=== PATIENT | female | born 1975 | race Caucasian/White ===

== ENCOUNTER 2019-09-17 19:25 | Inpatient (IN) | payer OTHER ==
[~2019-09-17] VITALS: Ht 165.1 cm; Wt 59.0 kg
[2019-09-17 20:08] LABS: ABG HCO3 23.1 mmol/L; ABG PH 7.551 (7.350-7.450); ABG PO2 70.5 mmHg (75.0-100.0); ABG SITE RIGHT BRACHIAL; ABG TOTAL HEMOGLOBIN 13.5 G/dL (12.0-16.0); COHb 0.9 % (0.5-1.5); MetHb 0.2 % (0.0-1.5); O2Hb 94.5 % (94.0-97.0); VENT MODE ROOM AIR
[2019-09-17 20:38] LABS: BASOPHILS % (AUTO) 0.4 % (0.0-2.0); EOSINOPHILS % (AUTO) 0.2 % (0.0-7.0); HEMATOCRIT 41.4 % (31.2-41.9); HEMOGLOBIN 14.2 g/dL (10.9-14.3); LYMPHOCYTES # (AUTO) 0.7 K/uL (20.0-40.0); LYMPHOCYTES % (AUTO) 31.7 % (20.5-51.5); MEAN CORPUSCULAR HEMOGLOBIN 34.2 uug (24.7-32.8); MEAN CORPUSCULAR HGB CONC 34 g/dL (32.3-35.6); MEAN CORPUSCULAR VOLUME 99.3 fL (75.5-95.3); MONOCYTES # (AUTO) 0.2 K/uL (2.0-10.0); MONOCYTES % (AUTO) 11.4 % (0.0-11.0); NEUTROPHILS # (AUTO) 1.2 K/uL (1.8-8.9); NEUTROPHILS % (AUTO) 56.3 % (38.5-71.5); PLATELET COUNT (AUTO) 216 K/uL (179-408); RED BLOOD CELL COUNT(AUTO) 4.16 MIL/uL (3.63-4.92); WHITE BLOOD COUNT (AUTO) 2.1 K/uL (3.8-11.8)
[2019-09-17 21:02] LABS: CREATININE 0.9 mg/dL (0.6-1.3); POTASSIUM 4.1 mmol/L (3.5-5.1)
[2019-09-17] MEDS ORDERED: AZITHROMYCIN IV 500 MG in IV DEXTROSE 5% 250 ML IV ONE ×2 (21:15→21:45)
[2019-09-17] MEDS ORDERED: CEFTRIAXONE 1 G in IV DEXTROSE 5% 50 ML IV ONE (21:15)
[2019-09-17] MEDS ORDERED: IV NORMAL SALINE 500 ML IV ONE (21:15)
[2019-09-17 21:16] LABS: BILIRUBIN,TOTAL 0.3 mg/dL (0.2-1.0)
--- NOTE | 2019-09-17 21:27 | NUR ---
Spoke to August of [facility], provided clinical info.
[2019-09-17] MEDS ORDERED: ONDANSETRON 4 MG/2 ML VIAL IV ONE (21:45)
[2019-09-17] MEDS ORDERED: ACETAMINOPHEN ES 500 MG TABLET PO ONE (21:45)
[2019-09-17] MEDS ORDERED: MORPHINE SULFATE 2 MG/1 ML DISP.SYRIN IV ONE (21:45)
[2019-09-17] MEDS ORDERED: CEFTRIAXONE 1 G VIAL ONE (22:03)
[2019-09-17] MEDS ORDERED: AZITHROMYCIN 500MG/ D5W 250ML IVPB **ER PYXIS ONLY IV ONE (22:04)
--- NOTE | 2019-09-17 22:22 | NUR ---
PT out of ER for CT.
--- NOTE | 2019-09-17 22:28 | NUR ---
Pt provided urine sample, sent to lab.
--- NOTE | 2019-09-17 22:30 | NUR ---
Dr. Rivera speaking with Dr. Levy of [place], pt not accepted by Dr. Levy and given authorization to be admitted to [facility].
--- NOTE | 2019-09-17 22:33 | NUR ---
Patient back to ER from CT.
--- NOTE | 2019-09-17 22:37 | NUR ---
Called to [facility] to page Cesario Reddy NP.
--- NOTE | 2019-09-17 22:39 | NUR ---
Dr. Rivera on panel call with Cesario Reddy NP.
--- NOTE | 2019-09-17 22:42 | NUR ---
Received call back from August of [facility] Dr Rivera speaking with [facility] and decided that patient will now be accepted for transfere.
--- NOTE | 2019-09-17 22:45 | NUR ---
Called [facility] to repage Jose Reddy NP.
[2019-09-17 22:50] LABS: *BILIRUBIN,URIN NEGATIVE (NEGATIVE); *CLARITY,URINE CLEAR (CLEAR); *COLOR,URINE YELLOW (YELLOW); *KETONES,URINE NEGATIVE (NEGATIVE); *UROBILINOGEN,URINE 0.2 E.U./dl (NORMAL); LEUKOCYTE ESTERASE ,URINE NEGATIVE (NEGATIVE); NITRITE, URINE NEGATIVE (NEGATIVE); UGLUCOSE NEGATIVE (NEGATIVE)
[2019-09-17 22:52] LABS: *BLOOD, URINE TRACE (NEGATIVE)
[2019-09-17 22:57] LABS: BACTERIA,URINE FEW /HPF (NONE SEEN); SQUAMOUS EPITHELIAL CELL,UR FEW /HPF (NONE SEEN); WBC,URINE 0-3 /HPF (0-3)
[2019-09-17] MEDS ORDERED: ONDANSETRON 4 MG/2 ML VIAL IV PRN (23:00)
[2019-09-17] MEDS ORDERED: IV NS 1000 ML 1,000 ML IV PRN (23:15)
--- NOTE | 2019-09-18 02:00 | NUR ---
Did not receive call back from [facility] regarding patient transfer, per Brittaney of [facility], if no call back by 0200, patient can be admitted to [facility].
--- NOTE | 2019-09-18 02:34 | NUR ---
Report given to [facility].
[2019-09-18] MEDS ORDERED: ALBUTEROL SULFATE 2.5 MG/ 0.5 ML NEBU NEB PRN (03:00)
[2019-09-18] MEDS: ACETAMINOPHEN 325 MG TABLET PO PRN ×2 (03:09→12:50)
--- NOTE | 2019-09-18 03:30 | NUR ---
Received patient awake and alert. Patient shows no signs or symptoms of distress at this time. Vital signs stable. Patient complains of having minimal shortness of breath and headache. 2L NC applied and pt reports that she feels better. Tylenol to be given for headache. No fever noted at this time. Call light within reach. Bed set to lowest position. Side rails x2 are up. Will continue to monitor patient.
[2019-09-18 04:25] VITALS: BP 104/68
[2019-09-18] MEDS ORDERED: ALBUTEROL SULFATE 8 GM HFA.AER.AD IH PRN (06:30)
[2019-09-18 07:02] LABS: BILIRUBIN,TOTAL 0.2 mg/dL (0.2-1.0); POTASSIUM 4.3 mmol/L (3.5-5.1); TOTAL PROTEIN, SERUM 6.3 g/dL (6.4-8.2)
--- NOTE | 2019-09-18 07:02 | NUR ---
Patient shows no signs or symptoms of distress at this time. NSR on tele monitor. Afebrile since arrival to unit. Complains of having shortness of breath. MDI albuterol given as per MD order. Pt seen by Dr. Reddy. Will endorse patient to day shift nurse in stable condition.
[2019-09-18 07:22] LABS: BASOPHILS % (AUTO) 0.6 % (0.0-2.0); LYMPHOCYTES % (AUTO) 42.1 % (20.5-51.5); MEAN CORPUSCULAR HEMOGLOBIN 34.4 uug (24.7-32.8); MEAN CORPUSCULAR HGB CONC 34 g/dL (32.3-35.6); MEAN CORPUSCULAR VOLUME 99.8 fL (75.5-95.3); MONOCYTES # (AUTO) 0.3 K/uL (2.0-10.0); MONOCYTES % (AUTO) 12.9 % (0.0-11.0); NEUTROPHILS % (AUTO) 44.4 % (38.5-71.5); PLATELET COUNT (AUTO) 201 K/uL (179-408); RED BLOOD CELL COUNT(AUTO) 3.51 MIL/uL (3.63-4.92); WHITE BLOOD COUNT (AUTO) 2.3 K/uL (3.8-11.8)
[2019-09-18] MEDS: ENOXAPARIN SODIUM 40 MG/0.4 ML DISP.SYRIN SQ SCH (09:15)
[2019-09-18] MEDS: HYDROXYCHLOROQUINE SULFATE 200 MG TABLET PO SCH ×2 (09:47→20:42)
[2019-09-18] MEDS: DOXYCYCLINE HYCLATE 100 MG TABLET PO SCH ×2 (09:47→16:57)
[2019-09-18 09:48] LABS: LYMPHOCYTES % (MANUAL) 42 % (20-40); MONOCYTES % (MANUAL) 13 % (2-10); NEUTROPHILS % (MANUAL) 45 % (42-75)
[2019-09-18 11:30] VITALS: BP 97/56
[2019-09-18] MEDS: LORAZEPAM 1 MG TABLET PO PRN (14:00)
[2019-09-18 16:00] VITALS: BP 96/66
[2019-09-18 20:00] VITALS: BP 100/64
--- NOTE | 2019-09-18 20:00 | NUR ---
Received patient in bed awake and alert, A/Ox4. No signs of acute distress. Complains of heartburn and upset stomach, called on-call Dr. Pantoja and ordered Mylanta 30ml Q6H PRN and Protonix 40mg daily. No SOB. IVF running on the left AC, no s/s of infection or infiltration noted. Patient on Plaquenil. Safety measures initiated. bed is low and locked, call light within reach. Will continue to monitor.
[2019-09-18] MEDS: CEFTRIAXONE 1 G in IV DEXTROSE 5% 50 ML IV SCH (20:41)
[2019-09-18] MEDS: MAG HYDROX/AL HYDROX/SIMETH 30 ML LIQUID UDC PO PRN (20:42)
[2019-09-18] MEDS: TEMAZEPAM 15 MG CAPSULE PO PRN (21:30)
--- NOTE | 2019-09-18 22:51 | NUR ---
Benita from lab called, COVID result is positive. Patient was also tested positive before coming to hospital. Will endorse to morning shift.
--- NOTE | 2019-09-18 22:52 | NUR ---
Patient saturating at 9% on 2L NC, increased to 3L due to patient stating feeling SOB and also gave sleeping medication and she said it's helping. Addendum: 09/18/19 at 2253 by LILLIAM RODAS RN Correction 92% on 2L NC
[2019-09-19] VITALS (9 sets, daily range): BP systolic 91–106; BP diastolic 62–83
[2019-09-19] MEDS: ACETAMINOPHEN 325 MG TABLET PO PRN ×3 (00:39→17:15)
--- NOTE | 2019-09-19 00:43 | NUR ---
Patient noted with temp 102.4, PRN tylenol and cooling measures applied. Patient is saturating at 93% on 3L NC. Patient stated breathing is ok, just when she is off O2 and goes to restroom she feels SOB.
--- NOTE | 2019-09-19 04:00 | NUR ---
Temp is now 98.4
[2019-09-19 07:19] LABS: BASOPHILS % (AUTO) 0.5 % (0.0-2.0); EOSINOPHILS % (AUTO) 0.1 % (0.0-7.0); HEMATOCRIT 37.1 % (31.2-41.9); HEMOGLOBIN 12.6 g/dL (10.9-14.3); LYMPHOCYTES % (AUTO) 35.9 % (20.5-51.5); MEAN CORPUSCULAR HGB CONC 34 g/dL (32.3-35.6); MEAN CORPUSCULAR VOLUME 99.8 fL (75.5-95.3); MONOCYTES # (AUTO) 0.3 K/uL (2.0-10.0); MONOCYTES % (AUTO) 12.4 % (0.0-11.0); NEUTROPHILS # (AUTO) 1.4 K/uL (1.8-8.9); NEUTROPHILS % (AUTO) 51.1 % (38.5-71.5); PLATELET COUNT (AUTO) 232 K/uL (179-408); RED BLOOD CELL COUNT(AUTO) 3.72 MIL/uL (3.63-4.92); WHITE BLOOD COUNT (AUTO) 2.7 K/uL (3.8-11.8)
[2019-09-19 07:33] LABS: CREATININE 0.9 mg/dL (0.6-1.3); MAGNESIUM 1.9 mg/dL (1.8-2.4); PHOSPHOROUS 3.8 mg/dL (2.5-4.9); POTASSIUM 4.1 mmol/L (3.5-5.1)
--- NOTE | 2019-09-19 07:40 | NUR ---
RESTING IN BED AFEBRILE REMAINS ON O2 AT 2L/M BY NASAL CANULLA STATED HAS POOR APPETITE BUT ORAL FLUID INTAKE HAS BEEN OKAY CALL LIGHTS AND PERSONAL BELONGINGS HAS BEEN WITHIN EASY REACH MADE COMFORTABLE WILL CONTINUE TO OBSERVE.
[2019-09-19] MEDS: PANTOPRAZOLE SODIUM 40 MG TABLET.DR PO SCH (08:32)
[2019-09-19] MEDS: HYDROXYCHLOROQUINE SULFATE 200 MG TABLET PO SCH ×2 (08:32→20:36)
[2019-09-19] MEDS: DOXYCYCLINE HYCLATE 100 MG TABLET PO SCH ×2 (08:32→16:56)
[2019-09-19] MEDS: ENOXAPARIN SODIUM 40 MG/0.4 ML DISP.SYRIN SQ SCH (08:37)
[2019-09-19 08:47] LABS: FERRITIN 438 ng/mL (8-252); LACTATE DEHYDROGENASE 196 U/L (81-234)
--- NOTE | 2019-09-19 09:05 | NUR ---
PATIENT IS IN BED AWAKE ALERT AND ORIENTED STATED IS HAVING A HEADACHE MEDICATED WITH TYLENOL ON O2 AT 3L/M BY NASAL CANULA WITH NO SOB AT THIS TIME POOR APPETITE BUT ORAL FLUID INTAKE HAS BEEN ADEQUATE MADE COMFORTABLE REMAIN ON ISOLATION ORDERED WILL CONTINUE TO OBSERVE.
[2019-09-19 09:38] LABS: LYMPHOCYTES % (MANUAL) 37 % (20-40); MONOCYTES % (MANUAL) 10 % (2-10); NEUTROPHILS % (MANUAL) 53 % (42-75)
[2019-09-19 10:15] LABS: ABG BASE EXCESS -1.2 mmol/L; ABG HCO3 21.1 mmol/L; ABG PCO2 29.6 mmHg (35.0-45.0); ABG PO2 77.8 mmHg (75.0-100.0); ABG SITE RIGHT RADIAL; ABG TOTAL HEMOGLOBIN 16.5 G/dL (12.0-16.0); COHb 0.7 % (0.5-1.5); MetHb 0.2 % (0.0-1.5); O2Hb 95.1 % (94.0-97.0)
[2019-09-19] MEDS: LORAZEPAM 1 MG TABLET PO PRN ×2 (11:16→21:24)
--- NOTE | 2019-09-19 11:16 | NUR ---
PATIENT ASSISTED TO THE BATHROOM AND SHE HAS SOBE AND ANXIOUS ASSISTED BACK TO BED AND MEDICATED WITH ATIVAN ORDERED WILL CONTINUE TO OBSERVE.
[2019-09-19 11:39] LABS: BILIRUBIN,DIRECT 0.1 mg/dL (0.0-0.2); BILIRUBIN,TOTAL 0.2 mg/dL (0.2-1.0); TOTAL PROTEIN, SERUM 6.6 g/dL (6.4-8.2)
--- NOTE | 2019-09-19 12:30 | NUR ---
PATIENT WAS GIVEN THE RENDERZIVER PAMPHLET INSTRUCTIONS PROVIDED BY THE PHARMACY PATIENT READ IT AND STATED THAT SHE WANTS TO TAKE THE MEDICATION ORDERED.
--- NOTE | 2019-09-19 12:46 | NUR ---
REMDESIVER STARTED ORDERED AFTER HER VITALS WAS CHECKED AND DOCUMENTED AND PATIENT INSTRUCTED TO LET THE NURSE KNOW OF ANY UNUSUAL FEELING SOB ETC AND SHE EXPRESSED UNDERSTANDING.
[2019-09-19] MEDS ORDERED: INVESTIGATIONAL IV MED 1 EA in IV NORMAL SALINE 210 ML IV ONE (13:00)
--- NOTE | 2019-09-19 13:50 | NUR ---
REMDESIVIR INFUSED ORDERED PATIENT DENIES ANY ADVERSE EFFECTS NO SOB SHE IS AFEBRILE NO RASHERS SHIVERING OR ANY UNUSUAL FEELINGS PATIENT TOLERATED IT WELL LINE FLUSHED WITH 50 ML OF NORMAL SALINE MADE COMFORTABLE AND WILL CONTINUE TO OBSERVE.
--- NOTE | 2019-09-19 17:00 | NUR ---
STATED HAVING GENERALISED BODY ACHES MEDICATED WITH TYLENOL ORDERED MADE COMFORTABLE O2 IN PROGRESS WITH NO SOB AT THIS TIME REMAIN ON ISOLATION PRECAUTION MADE COMFORTABLE WILL CONTINUE TO OBSERVE.
--- NOTE | 2019-09-19 19:45 | NUR ---
Received patient awake and alert. Patient shows no signs or symptoms of distress at this time. Vital signs stable. NSR on tele monitor. Denies having any shortness of breath and is afebrile at this time. Bed set too lowest position. Call light within reach. Will continue to monitor patient.
[2019-09-19] MEDS: CEFTRIAXONE 1 G in IV DEXTROSE 5% 50 ML IV SCH (20:36)
[2019-09-20] VITALS: BP 108/85
[2019-09-20] MEDS: MAG HYDROX/AL HYDROX/SIMETH 30 ML LIQUID UDC PO PRN (01:19)
[2019-09-20] MEDS: TEMAZEPAM 15 MG CAPSULE PO PRN ×2 (02:18→22:00)
[2019-09-20] MEDS: ACETAMINOPHEN 325 MG TABLET PO PRN ×4 (02:18→22:06)
[2019-09-20 04:00] VITALS: BP 90/58
[2019-09-20 06:30] LABS: BASOPHILS % (AUTO) 0.4 % (0.0-2.0); EOSINOPHILS % (AUTO) 0.2 % (0.0-7.0); HEMATOCRIT 36.8 % (31.2-41.9); HEMOGLOBIN 12.5 g/dL (10.9-14.3); LYMPHOCYTES # (AUTO) 0.9 K/uL (20.0-40.0); LYMPHOCYTES % (AUTO) 34.1 % (20.5-51.5); MEAN CORPUSCULAR HEMOGLOBIN 33.6 uug (24.7-32.8); MEAN CORPUSCULAR HGB CONC 34 g/dL (32.3-35.6); MEAN CORPUSCULAR VOLUME 98.9 fL (75.5-95.3); MONOCYTES # (AUTO) 0.5 K/uL (2.0-10.0); MONOCYTES % (AUTO) 18.9 % (0.0-11.0); NEUTROPHILS # (AUTO) 1.3 K/uL (1.8-8.9); NEUTROPHILS % (AUTO) 46.4 % (38.5-71.5); RED BLOOD CELL COUNT(AUTO) 3.72 MIL/uL (3.63-4.92); WHITE BLOOD COUNT (AUTO) 2.8 K/uL (3.8-11.8)
--- NOTE | 2019-09-20 06:33 | NUR ---
Patient shows no signs or symptoms of distress at this time. Vital signs stable. Patient was afebrile throughout the shift and denied having any shortness of breath. NSR on tele monitor. Will endorse patient to day shift nurse in stable condition.
[2019-09-20 06:49] LABS: ALANINE AMINOTRANSFERASE 30 U/L (14-59); ALKALINE PHOSPHATASE 86 U/L (50-136); ASPARTATE AMINOTRANSFERASE 52 U/L (15-37); BILIRUBIN,DIRECT < 0.1 mg/dL (0.0-0.2); BILIRUBIN,TOTAL 0.2 mg/dL (0.2-1.0); CARBON DIOXIDE 26 mmol/L (21-32); CHLORIDE 100 mmol/L (98-107); CREATININE 0.9 mg/dL (0.6-1.3); FERRITIN 433 ng/mL (8-252); GLUCOSE 91 mg/dL (74-106); LACTATE DEHYDROGENASE 231 U/L (81-234); MAGNESIUM 2.2 mg/dL (1.8-2.4); POTASSIUM 4.4 mmol/L (3.5-5.1); UREA NITROGEN, BLOOD 7 mg/dL (7-18)
[2019-09-20 07:29] LABS: PLATELET COUNT (AUTO) 304 K/uL (179-408)
[2019-09-20 08:40] LABS: LYMPHOCYTES % (MANUAL) 38 % (20-40); MONOCYTES % (MANUAL) 16 % (2-10); NEUTROPHILS % (MANUAL) 46 % (42-75)
[2019-09-20 08:50] VITALS: BP 99/60
[2019-09-20] MEDS: PANTOPRAZOLE SODIUM 40 MG TABLET.DR PO SCH (08:57)
[2019-09-20] MEDS: DOXYCYCLINE HYCLATE 100 MG TABLET PO SCH ×2 (08:58→16:06)
[2019-09-20] MEDS: ENOXAPARIN SODIUM 40 MG/0.4 ML DISP.SYRIN SQ SCH (08:58)
[2019-09-20] MEDS: HYDROXYCHLOROQUINE SULFATE 200 MG TABLET PO SCH ×2 (08:58→21:21)
[2019-09-20] MEDS: INVESTIGATIONAL IV MED 1 EA in IV NORMAL SALINE 230 ML IV SCH (13:19)
[2019-09-20 13:20] VITALS: BP 95/61
[2019-09-20 17:21] VITALS: BP 102/69
--- NOTE | 2019-09-20 19:55 | NUR ---
critical lab value received. ID Lalitha WOOD and Saadia tirado, brian contacted. Lalitha WOOD ordered [facility] labs for the morning. Saadia Tirado, no new orders. charge aware.
[2019-09-20 20:00] VITALS: BP 102/63
--- NOTE | 2019-09-20 22:06 | NUR ---
patient c/o of pain. tylenol administered. tolerated well. temazepam given as well.
[2019-09-21] VITALS (9 sets, daily range): BP systolic 97–106; BP diastolic 63–73
--- NOTE | 2019-09-21 04:00 | NUR ---
patient sleeping comfortably. no s/s of acute distress noted. v/s stable. on NC 2L. safety precautions provided. NSR on tele monitor. IV intact and patent. all needs med. will continue to monitor.
--- NOTE | 2019-09-21 08:00 | NUR ---
Received patient in bed, awake, alert and verbally responsive. On Oxygen at 1L via nasal canula saturating 93%. No complain of Pain or discomfort at this time. Afebrile. remains on contact and droplet Isolation for Positive covid 19. proper PPE strictly Observed. Kept clean and comfortable. Will continue to monitor.
[2019-09-21 08:15] LABS: BASOPHILS % (AUTO) 0.5 % (0.0-2.0); HEMATOCRIT 37.8 % (31.2-41.9); HEMOGLOBIN 12.9 g/dL (10.9-14.3); LYMPHOCYTES % (AUTO) 41.5 % (20.5-51.5); MEAN CORPUSCULAR HEMOGLOBIN 33.9 uug (24.7-32.8); MEAN CORPUSCULAR HGB CONC 34 g/dL (32.3-35.6); MEAN CORPUSCULAR VOLUME 99.2 fL (75.5-95.3); MONOCYTES # (AUTO) 0.4 K/uL (2.0-10.0); RED BLOOD CELL COUNT(AUTO) 3.81 MIL/uL (3.63-4.92); WHITE BLOOD COUNT (AUTO) 2.5 K/uL (3.8-11.8)
[2019-09-21 08:22] LABS: PLATELET COUNT (AUTO) 389 K/uL (179-408)
[2019-09-21] MEDS: PANTOPRAZOLE SODIUM 40 MG TABLET.DR PO SCH (08:57)
[2019-09-21] MEDS: HYDROXYCHLOROQUINE SULFATE 200 MG TABLET PO SCH ×2 (08:58→20:29)
[2019-09-21 09:01] LABS: BILIRUBIN,DIRECT 0.1 mg/dL (0.0-0.2); BILIRUBIN,TOTAL 0.2 mg/dL (0.2-1.0); MAGNESIUM 2.2 mg/dL (1.8-2.4); PHOSPHOROUS 3.4 mg/dL (2.5-4.9); POTASSIUM 4.2 mmol/L (3.5-5.1); TOTAL PROTEIN, SERUM 7.2 g/dL (6.4-8.2)
[2019-09-21] MEDS: ENOXAPARIN SODIUM 40 MG/0.4 ML DISP.SYRIN SQ SCH (09:36)
[2019-09-21 10:24] LABS: BAND % (MANUAL) 1 % (0-10); EOSINOPHILS % (MANUAL) 2 % (0-8); LYMPHOCYTES % (MANUAL) 47 % (20-40); MONOCYTES % (MANUAL) 15 % (2-10); MYELOCYTES % 1 % (0-0); NEUTROPHILS % (MANUAL) 33 % (42-75)
--- NOTE | 2019-09-21 11:00 | NUR ---
placed patient on Room Air, saturating 92%. will continue to monitor.
[2019-09-21] MEDS: ACETAMINOPHEN 325 MG TABLET PO PRN ×2 (11:18→17:46)
[2019-09-21] MEDS ORDERED: HYDROCODONE BIT/HOMATROPINE 5 ML UDC PO PRN (12:00)
--- NOTE | 2019-09-21 12:50 | NUR ---
Vital signs 15 minutes prior Remdesevir IV : 106/70 P 78 R 20 T 98.5 Sat. 92% on Room Air.
--- NOTE | 2019-09-21 13:05 | NUR ---
Vital Signs while Remdesevir IV started: BP 102/68 P 76 R 18 T 98.5 Sat 92% on Room Air.
--- NOTE | 2019-09-21 13:20 | NUR ---
Vital signs 15 minutes after started the Remdesevir IV : BP 97/70 P 82 R 18 Sat 92% on Room Air, called Mikki Pharmacist and slower the rate form 250cc/hr to 125cc/hr. Will continue to monitor.
[2019-09-21] MEDS: INVESTIGATIONAL IV MED 1 EA in IV NORMAL SALINE 230 ML IV SCH (13:30)
--- NOTE | 2019-09-21 13:35 | NUR ---
Patient on IV Remdesevir at 125cc/hr, Vital signs 106/70 P 82 Saturating 92% on Room Air. No ASE noted. Will continue to monitor.
--- NOTE | 2019-09-21 18:00 | NUR ---
New Order of Covid 19 swab done, sent to labs.
--- NOTE | 2019-09-21 18:24 | NUR ---
Patient in bed, awake and alert, verbally responsive. Able to make needs known. On Room Air Saturating 92%. With episode of SOB and dry cough. Tylenol 650mg given for Headache. Remdesevir IV given, No ASE noted, tolerated well. Afebrile. Kept clean and comfortable. All needs attended and met. Will endorse to Oncoming Nurse.
--- NOTE | 2019-09-21 20:00 | NUR ---
Patient received into care, sitting up in bed, watching television. Patient is alert/oriented x4 and complaining of headache, but received Tylenol 650mg PO at 1745h. Patient didn't eat any of her dinner and when questioned patient advised this nurse that she has allergies to gluten and is lactose intolerant. This nurse advised patient she would make note of her allergies and update her meal preferences. All safety, fall, and isolation precautions are in place. Call light and personal items are within reach at all times. Will continue to monitor and assess.
[2019-09-21] MEDS: TEMAZEPAM 15 MG CAPSULE PO PRN (22:46)
[2019-09-22] VITALS (8 sets, daily range): BP systolic 94–143; BP diastolic 44–68
[2019-09-22] MEDS: MAG HYDROX/AL HYDROX/SIMETH 30 ML LIQUID UDC PO PRN (04:21)
[2019-09-22] MEDS: ACETAMINOPHEN 325 MG TABLET PO PRN (04:22)
--- NOTE | 2019-09-22 06:00 | NUR ---
Patient slept well throughout night with complaints of pain/discomfort addressed with prescribed analgesics and complaints of heartburn addressed with prescribed magnesium hydroxide/aluminum hydroxide, with no adverse side effects verbalized by patient or noted/observed by this nurse. VS are wnl and patient is tolerating room air with oxygen saturation in the mid 90's. All nursing needs were met promptly and patient is warm, dry, and comfortable. All fall and isolation precautions remain in effect. Call light and personal items remain within reach at all times.
--- NOTE | 2019-09-22 08:00 | NUR ---
Patient in bed, awake, alert and verbally responsive. patient was room air saturating 88%, placed back to Oxygen at 2L via nasal canula, saturating 92%.patient has episode of Dry cough. No complain of pain at this time. remains on contact and droplet isolation for positive covid 19. Proper PPE strictly Observed. kept clean and comfortable. Will continue to monitor.
[2019-09-22] MEDS: HYDROXYCHLOROQUINE SULFATE 200 MG TABLET PO SCH ×2 (08:07→21:56)
[2019-09-22] MEDS: PANTOPRAZOLE SODIUM 40 MG TABLET.DR PO SCH (08:08)
[2019-09-22 08:32] LABS: BILIRUBIN,DIRECT 0.1 mg/dL (0.0-0.2); BILIRUBIN,TOTAL 0.2 mg/dL (0.2-1.0); CREATININE 0.9 mg/dL (0.6-1.3); MAGNESIUM 2.8 mg/dL (1.8-2.4); POTASSIUM 4.2 mmol/L (3.5-5.1); TOTAL PROTEIN, SERUM 7.3 g/dL (6.4-8.2)
[2019-09-22 08:44] LABS: BASOPHILS % (AUTO) 0.3 % (0.0-2.0); EOSINOPHILS % (AUTO) 0.9 % (0.0-7.0); HEMATOCRIT 39.1 % (31.2-41.9); HEMOGLOBIN 13.3 g/dL (10.9-14.3); LYMPHOCYTES % (AUTO) 25.7 % (20.5-51.5); MEAN CORPUSCULAR HEMOGLOBIN 33.8 uug (24.7-32.8); MEAN CORPUSCULAR HGB CONC 34 g/dL (32.3-35.6); MEAN CORPUSCULAR VOLUME 99.6 fL (75.5-95.3); MONOCYTES # (AUTO) 0.7 K/uL (2.0-10.0); NEUTROPHILS % (AUTO) 54.1 % (38.5-71.5); PLATELET COUNT (AUTO) 477 K/uL (179-408); RED BLOOD CELL COUNT(AUTO) 3.93 MIL/uL (3.63-4.92); WHITE BLOOD COUNT (AUTO) 3.7 K/uL (3.8-11.8)
[2019-09-22] MEDS: ENOXAPARIN SODIUM 40 MG/0.4 ML DISP.SYRIN SQ SCH (10:00)
[2019-09-22 12:57] LABS: EOSINOPHILS % (MANUAL) 1 % (0-8); LYMPHOCYTES % (MANUAL) 22 % (20-40); MONOCYTES % (MANUAL) 23 % (2-10); NEUTROPHILS % (MANUAL) 54 % (42-75)
[2019-09-22] MEDS: INVESTIGATIONAL IV MED 1 EA in IV NORMAL SALINE 230 ML IV SCH (13:11)
--- NOTE | 2019-09-22 18:18 | NUR ---
Patient in bed, awake, alert and verbally responsive. No signs of distress noted. afebrile. On Oxygen at 2L via nasal canula, saturating 94%. No complain of Pain or discomfort. Remdesevir IV given, No ASE noted. tolerated well. kept clean and comfortable. Will endorse to Oncoming Nurse.
--- NOTE | 2019-09-22 20:00 | NUR ---
Patient received into care, sitting up in bed, watching television. Patient is alert/oriented x4 and has no complaints of pain or discomfort at this time. IV site on left forearm is patent and intact. All safety, fall, allergy, and isolation precautions are in place. Call light and personal items are within reach at all times. Will continue to monitor and assess.
--- NOTE | 2019-09-22 21:06 | NUR ---
Spoke with ISRAEL Field regarding order for convalescent plasma transfusion, per 09/21/2019 note from Delbert at 1340h and ISRAEL Schwab at 1641h. ISRAEL Field gave okay to place order for convalescent plasma transfusion.
--- NOTE | 2019-09-22 23:25 | NUR ---
This nurse called lab re: convalescent plasma order. As per vat house laborer Pavan, order placed by both MD Mandujano and ISRAEL Schwab. Lab will begin readying plasma for transfusion.
--- NOTE | 2019-09-22 23:48 | NUR ---
Signed consent received from patient for transfusion.
[2019-09-23] VITALS (10 sets, daily range): BP systolic 90–103; BP diastolic 59–71
--- NOTE | 2019-09-23 02:10 | NUR ---
Started transfusion of convalescent plasma. VS before transfusion: T 97.7 HR 74 BP 90/60 O2 94% Will continue to monitor and assess.
--- NOTE | 2019-09-23 02:25 | NUR ---
Convalescent Transfusion after 15 minutes: VS T 97.9 HR 74 BP 95/62 O2 96% Will continue to monitor and assess.
--- NOTE | 2019-09-23 02:55 | NUR ---
Convalescent plasma transfusion after 30 min: T 98.0 HR 73 BP 93/65 RR 19 O2 96% Will continue to monitor and assess.
--- NOTE | 2019-09-23 04:13 | NUR ---
Convalescent plasma infusion complete. Final VS: T 98.0 HR 67 BP 91/59 RR 19 O2 95%. Infusion tolerated well by patient with no adverse side effects verbalized by patient or noted/observed by this nurse. Will continue to monitor and assess.
[2019-09-23] MEDS: ACETAMINOPHEN 325 MG TABLET PO PRN (04:22)
--- NOTE | 2019-09-23 05:00 | NUR ---
Patient slept intermittently throughout night with complaints of headache addressed with prescribed Tylenol 650mg PO. Investigational convalescent plasma infused as ordered and tolerated well by patient with no adverse side effects verbalized by patient or noted/observed by this nurse. All prescribed medications provided as ordered and tolerated well by patient with no adverse side effects verbalized by patient or noted/observed by nurse. All nursing needs met promptly and patient is warm, dry, and comfortable. All safety, fall, allergy, and isolation precautions remain in effect. Call light and personal items remain in within reach.
[2019-09-23 06:56] LABS: BILIRUBIN,DIRECT 0.1 mg/dL (0.0-0.2); BILIRUBIN,TOTAL 0.3 mg/dL (0.2-1.0); TOTAL PROTEIN, SERUM 7.3 g/dL (6.4-8.2)
[2019-09-23] MEDS: PANTOPRAZOLE SODIUM 40 MG TABLET.DR PO SCH (08:44)
[2019-09-23] MEDS: ENOXAPARIN SODIUM 40 MG/0.4 ML DISP.SYRIN SQ SCH (08:44)
[2019-09-23 09:59] LABS: CREATININE 0.9 mg/dL (0.6-1.3); POTASSIUM 4.2 mmol/L (3.5-5.1)
--- NOTE | 2019-09-23 11:43 | NUR ---
Patient is AAO x 4, No acute distress noted. No complains of pain at this time. Afebrile. Vital signs stable for patient. Denies any pain. Patient noted with cough, denies any SOB. Due medications administered as ordered and scheduled and tolerated well. IV line on left FA intact and patent. NO S/Sx of infiltration noted. Patient very compliant with care. Independent with adls and ambulatory. Safety need in place, call light left at bed side and will continue with care and monitor.
[2019-09-23] MEDS: MAG HYDROX/AL HYDROX/SIMETH 30 ML LIQUID UDC PO PRN (12:27)
[2019-09-23] MEDS: INVESTIGATIONAL IV MED 1 EA in IV NORMAL SALINE 230 ML IV SCH (13:39)
--- NOTE | 2019-09-23 19:49 | NUR ---
Patient in bed awake, denies any discomfort. Patient noted still coughing. Afebrile. Vital signs stable. Patient noted with short of breath while going to the bathroom during shift and stated feeling dizzy going back to bed. Patient assisted back to bed and placed on O2 2LPM with O2 sating at 96%. Educated patient to put on NC whenever feeling SOB. Patient verbalized understanding. All other needs attended, vital signs stable at this time. All safety measures in place, endorsed to next shift and will continue with care.
--- NOTE | 2019-09-23 20:00 | NUR ---
Patient received into care sitting up in bed, watching television, resting comfortably. Patient is alert/oriented x4 and has no complaints of pain or discomfort at this time. All safety, fall, allergy, and isolation precautions are in place. Call light and personal items are within reach at all times. Will continue to monitor and assess.
--- NOTE | 2019-09-23 21:15 | NUR ---
This nurse attempted to ambulate patient from room 210 to hallway for trial walk with portable oxygen at 2L/min and continuous pulse-ox measurement. Patient was able to walk a few steps inside room but became SOB and began having a syncopal episode and pulse-ox measuring from 88-89%. This nurse safely helped patient back to bed and placed her in a high zuniga's position, and transferred NC oxygen from portable oxygen to wall oxygen. After 5 minutes, patient was no longer experiencing SOB and oxygen saturation was at 93%. No further attempts were made to ambulate patient, as ordered, based upon the first trial of walking with portable oxygen.
[2019-09-24 00:06] VITALS: BP 102/64
[2019-09-24 04:00] VITALS: BP 93/64
--- NOTE | 2019-09-24 06:00 | NUR ---
Patient slept intermittently throughout night with no complaints of pain or discomfort vergalized by patient. As ordered, this nurse attempted to ambulate patient with portable oxygen and pulse ox, however, patient became SOB and had a near syncopal episode after a few steps, with oxygen desaturation occurring at 88-89%. No further attempts were made to ambulate patient as ordered due to SOB, desaturation, and near syncopal episode. Patient expressed her concerns to this nurse about being discharged to her home because she lives in a 2nd floor apartment by herself and is concerned that she will experience these same signs/symptoms and not have any assistance should she "faint." This nurse assured patient that she would make note of her trial walking period and of her concerns with plan to transfer to home. Patient is also concerned about transfer to another facility would set her back in her treatment, as she has received her initial treatment here which includes completion of Plaquenil, 4 of 4 infusions of Remdesivir, and a transfusion of convalescent plasma. This nurse recommends that patient begin incentive spirometer to help SOB and to continue hospitalization at this facility with a reswab for COVID-19 as patient has completed Remdesivir and convalescent plasma in the last 24-48 hours. All safety, allergy, and fall precautions remain in place. Call light and personal items remain in place.
[2019-09-24 07:18] LABS: FERRITIN 225 ng/mL (8-252); LACTATE DEHYDROGENASE 179 U/L (81-234)
[2019-09-24] MEDS: PANTOPRAZOLE SODIUM 40 MG TABLET.DR PO SCH (08:50)
[2019-09-24] MEDS: ENOXAPARIN SODIUM 40 MG/0.4 ML DISP.SYRIN SQ SCH (08:52)
[2019-09-24 09:01] VITALS: BP 93/64
[2019-09-24] MEDS ORDERED: PANT40TA2 PO (13:47)
[2019-09-24] MEDS ORDERED: CHOL10002 PO (13:47)
[2019-09-24] MEDS ORDERED: ALBU8HFA4 IH (13:47)
[2019-09-24] MEDS ORDERED: ASCO-316 PO (13:47)
[2019-09-24] MEDS ORDERED: MULT-594 PO (13:47)
[2019-09-24] MEDS ORDERED: ACET325T53 PO (13:47)
--- NOTE | 2019-09-24 16:28 | NUR ---
Pt received, assessed, AAOx4, no acute distress, compliant with routine medications. Plan of care discussed. Pt seen my MD, plan of care continued to be discussed additionally with Case Management. Pt has decided to leave AMA, due to refusing her insurances recommendation to be transferred, and not willing to pay out of pocket to continue to stay here. Spoke with Kary with [employer] ([phone]), further discussed Pt's plan of care. Pt is awaiting arrival of O2 delivery, with shower chair. Then [facility] trip #[id number], is due to arrive at 8pm, arranged by "[employer]" ([phone]). VSS, although Pt continues to desaturate with exercise/ambulation exertion. Pt able to make needs known. Call light placed within reach. All fall, isolation, and safety precautions implemented. Will continue to monitor.
--- NOTE | 2019-09-24 16:37 | NUR ---
Pt teaching provided in regards to MD guidelines; "Follow-up SOUMYA with your doctor, DO NOT GO OUT IN PUBLIC. STRICT ISOLATION, DO NOT VISIT PARENTS OR THOSE AT HIGH RISK WITH CHRONIC OR ACUTE MEDICAL, PROBLEMS, Increase activity as tolerated, Call you doctor for SARS CoV-2 (COVID-19) test to be performed on , Return here or any hospital if SOB is not impoved or any concerning reason., STRICT HAND WASHING AND MASK WHEN INTERACTING WITH PUBLIC OR GOING OUT OF, YOUR HOUSE". Will continue to monitor.
[2019-09-24 17:27] VITALS: BP 93/61
--- NOTE | 2019-09-24 20:00 | NUR ---
Received patient awake and alert. Patient shows no signs or symptoms of distress at this time. Vital signs stable. Pt is 97% on RA. Patient to be leaving today AMA and will be picked up by ambulance at 1999. Patient taught how to operate portable O2. Patient verbalized understanding. Awaiting ambulance to berry picker patient.
[2019-09-24 20:45] VITALS: BP 94/60
--- NOTE | 2019-09-24 21:15 | NUR ---
Ambulance here to picker and packer patient. IV heplock and ID bands removed. Belongings are with patient and belongings sheet was signed. Portable O2 tank with patient. O2 concentrator to be delivered to home address. AMA paperwork signed and copy placed in chart. Patient left hospital on gurney and in stable condition.
== END 2019-09-24 21:30 | disposition left against medical advice (07) | DRG 720 ==
LOC: ER 19:30 → TELE 09-18 02:36 → UNDODISIN 09-24 16:20 → TELE3 09-24 18:35
PROVIDERS: ADMIT Nurse Practitioner Acute Care; ATTEND Nurse Practitioner Acute Care
PROC: 30233L1 Transfusion of Nonautologous Fresh Plasma into Peripheral Vein, Percutaneous Approach (ICD-10-PCS; principal; 2019-09-23)
DX: A41.89 Other specified sepsis (principal); U07.1 COVID-19; J96.01 Acute respiratory failure with hypoxia; E87.3 Alkalosis; J12.89 Other viral pneumonia; D72.819 Decreased white blood cell count, unspecified; E86.0 Dehydration; I95.1 Orthostatic hypotension; F41.9 Anxiety disorder, unspecified; R51 Headache; R07.89 Other chest pain; R19.7 Diarrhea, unspecified; K92.2 Gastrointestinal hemorrhage, unspecified
CPT/HCPCS: 36415; 36600; 70030-TC; 70450; 71045; 83605; 83615; 83735; 84100; 85025; 85610; 85651; 85730; 86140; 86900; 86901; 87040; 87086; 87400; 93005; A4663; A9150; G0378; J0456; J0696; J1650; J2270; J2405; J3535; J7030; J7050; J7060; U0003-CS

== ENCOUNTER 2019-11-29 07:21 | Emergency (ER) | payer OTHER ==
[~2019-11-29] VITALS: Ht 165.1 cm; Wt 63.5 kg
[~2019-11-29 07:21] MED LIST: ACET325T53 PO; ALBU8HFA4 IH; ASCO-316 PO; CHOL10002 PO; MULT-594 PO; PANT40TA2 PO
[2019-11-29] MEDS ORDERED: OMEP20TA5 PO (07:31)
--- NOTE | 2019-11-29 07:38 | NUR ---
DR Armijo at the bedside for MSE.
[2019-11-29] MEDS ORDERED: KETOROLAC TROMETHAMINE 60 MG INJ IM ONE ×2 (07:44→07:45)
[2019-11-29] MEDS ORDERED: ONDANSETRON ODT 4 MG TAB.RAPDIS ONE (07:44)
[2019-11-29] MEDS ORDERED: ONDANSETRON ODT 4 MG TAB.RAPDIS SL ONE (07:45)
[2019-11-29 09:06] LABS: *BILIRUBIN,URIN NEGATIVE (NEGATIVE); *BLOOD, URINE NEGATIVE (NEGATIVE); *CLARITY,URINE CLEAR (CLEAR); *COLOR,URINE YELLOW (YELLOW); *KETONES,URINE NEGATIVE (NEGATIVE); LEUKOCYTE ESTERASE ,URINE NEGATIVE (NEGATIVE); NITRITE, URINE NEGATIVE (NEGATIVE); UGLUCOSE NEGATIVE (NEGATIVE)
[2019-11-29 09:08] LABS: *URINE HCG, QUAL NEG (NEGATIVE)
[2019-11-29 10:30] VITALS: BP 120/67
--- NOTE | 2019-11-29 10:30 | NUR ---
Patient discharged to home in stable condition. Written and verbal after care instructions given. Patient verbalizes understanding of instructions. Stressed follow up or return to ER for worsening s/s.
[2019-11-29 18:15] LABS: RBC,URINE NONE SEEN /HPF (0-3)
[2019-11-29 18:16] LABS: BACTERIA,URINE NONE SEEN /HPF (NONE SEEN); SQUAMOUS EPITHELIAL CELL,UR FEW /HPF (NONE SEEN); WBC,URINE NONE SEEN /HPF (0-3)
== END 2019-11-29 10:31 | disposition home or self-care (01) ==
LOC: ER 07:21
DX: M54.9 Dorsalgia, unspecified (principal); R10.2 Pelvic and perineal pain; K21.9 Gastro-esophageal reflux disease without esophagitis; Z86.19 Personal history of other infectious and parasitic diseases
CPT/HCPCS: 74176; 76856; 81001; 84703; 96372; 99285; J1885; A4663; Q0162